=== PATIENT | female | born 1990 | race Caucasian/White ===

== ENCOUNTER 2016-10-31 18:33 | Emergency (ER) | payer OTHER ==
[2016-10-31 18:33] VITALS: BMI 26.8
[2016-10-31 18:55] VITALS: BP 114/73; PULSE 75; RESP 18; TEMP 98.5; O2SAT 100
--- NOTE | 2016-10-31 19:30 | C.PDOC ---
History Of Present Illness 25 yr old female presents to the ER for evaluation of painful mass over the left and right axilla, gradually developing for the past 1 month. Patient states for the past few days the pain over the right axilla has worsened and noted some drainage. Patient denies fever, chills, chest pain, SOB, weakness or numbness to B/L UEs.Ambulate to Ed for evaluation, not in any apparent distress. Time Seen by Provider: 10/31/16 19:09 Chief Complaint (Nursing): Abnormal Skin Integrity History Per: Patient History/Exam Limitations: no limitations Onset/Duration Of Symptoms: Gradual (1 month) Past Medical History Vital Signs: Last Vital Signs Temp 98.5 F 10/31/16 18:54 Pulse 75 10/31/16 18:54 Resp 18 10/31/16 18:54 BP 114/73 10/31/16 18:54 Pulse Ox 100 10/31/16 19:45 - [facility] Procedures REPAIR OB LACERATION NEC (02/26/13) Family History: States: No Known Family Hx - Social History Hx Alcohol Use: No Hx Substance Use: No - Immunization History Hx Tetanus Toxoid Vaccination: No Hx Influenza Vaccination: No Hx Pneumococcal Vaccination: No Review Of Systems Except As Marked, All Systems Reviewed And Found Negative. Constitutional: Negative for: Fever, Chills Cardiovascular: Negative for: Chest Pain Respiratory: Negative for: Shortness of Breath Gastrointestinal: Negative for: Nausea, Vomiting Skin: Positive for: Other ((+) Painful mass over the right and left axilla) Neurological: Negative for: Weakness, Numbness Physical Exam - Physical Exam Appears: Non-toxic, No Acute Distress Skin: Warm, Dry, Other (Tender mass, linear over the bilateral axilla. 2 small open wound in the right axilla with clear discharge. No erythema. No fluctuance. ) Oral Mucosa: Moist Extremity: Normal ROM, No Tenderness, Capillary Refill (<2), No Swelling Neurological/Psych: Oriented x3, Normal Speech, Normal Motor, Normal Sensation, Normal Reflexes ED Course And Treatment O2 Sat by Pulse Oximetry: 100 (RA ) Pulse Ox Interpretation: Normal Progress Note: On re-eavluation, pt is afebrile, hemodynamicaly stable. Non- toxic. B/L UEs: exam c/w early hydroadenitis supparative with mild self- draining Right axillary wound. No erythema, no flactulance. FAROM, no neurovascular deficist to B/L UEs. Pt advised on course of ds. ref. to f/u with Surgery in 2-3 days for re-evaluation. Return to ED if any worsening or new changes. Disposition Counseled Patient/Family Regarding: Diagnosis, Need For Followup, Rx Given - Disposition Referrals: [facility] [Outside] Clinic,Med Surg [Primary Care Provider] - Liborio Austin MD [Staff Provider] - Disposition: HOME/ ROUTINE Disposition Time: 19:27 Condition: STABLE Additional Instructions: WARM SALTY WATER COMPRESSES TO AREA 2-3 TIMES DAILY TAKE MEDICATION PRESCRIBED FOLLOW UP WITH SURGERY IN 2-3 DAYS FOR RE-EVALUATION. RETURN TO ED IF ANY WORSENING OR NEW CHANGES. Prescriptions: Doxycycline Hyclate [Doryx] 100 mg PO BID #14 cap Instructions: Abscess (ED) Forms: [employer] (K[place]itian) - Clinical Impression Clinical Impression: Abscess, Hydradenitis - PA / GAMMA RAY OPERATOR / Resident Statement MD/DO has reviewed & agrees with the documentation as recorded. - Scribe Statement The provider has reviewed the documentation as recorded by the Scribe Gisella Estrada All medical record entries made by the Scribe were at my direction and personally dictated by me. I have reviewed the chart and agree that the record accurately reflects my personal performance of the history, physical exam, medical decision making, and the department course for this patient. I have also personally directed, reviewed, and agree with the discharge instructions and disposition.
== END 2016-10-31 19:49 | disposition home or self-care (01) ==
LOC: SUPCPDRO 18:33 → C.ER 18:33
DX: L02.412 Cutaneous abscess of left axilla (principal); L73.2 Hidradenitis suppurativa